=== PATIENT | male | born 1975 ===

== ENCOUNTER 2018-05-25 12:12 | Emergency (ER) | payer MEDICAID ==
[2018-05-25 12:23] VITALS: BP 168/103; PULSE 62; RESP 20; TEMP 97.9; O2SAT 98
--- NOTE | 2018-05-25 13:13 | ED PDOC ---
HPI: General Adult Time Seen by Provider: 05/25/18 12:26 Chief Complaint (Nursing): Dizziness/Lightheaded History Per: Patient History/Exam Limitations: no limitations Onset/Duration Of Symptoms: Days Current Symptoms Are (Timing): Better Additional Complaint(s): 43 year old male with a past medical history of high blood pressure and diabetes presents to the ED for an evaluation of dizziness and weakness. Patient states the dizziness started yesterday around 3-4pm with associated symptoms of double vision and numbness in his arms so he went home. At home, he took a shower and went to sleep at 9:30pm. He woke up and went out to eat tacos and then went to bed at 12am. When patient woke up at 10:30am today, he started to hear voices that were bothering him. Also reports of light headedness and states he has no strength in his arms and legs. Patient states he feels much better today. Denies abdominal pain, chest pain, fever or cough. PMD: Marko Evans Past Medical History Reviewed: Historical Data, Nursing Documentation, Vital Signs Vital Signs: Last Vital Signs Temp 97.9 F 05/25/18 12:18 Pulse 62 05/25/18 12:18 Resp 20 05/25/18 12:18 BP 168/103 H 05/25/18 12:18 Pulse Ox 98 05/25/18 13:27 - Medical History PMH: Anxiety, Diabetes, HTN - Surgical History Surgical History: No Surg Hx - Family History Family History: States: Unknown Family Hx - Social History Current smoker - smoking cessation education provided: No Alcohol: None Drugs: Denies - Allergies Allergies/Adverse Reactions: Allergies Allergy/AdvReac Type Severity Reaction Status Date / Time No Known Allergies Allergy Verified 05/25/18 12:19 Review of Systems ROS Statement: Except As Marked, All Systems Reviewed And Found Negative Constitutional: Positive for: Weakness. Negative for: Fever Eyes: Positive for: Vision Change Cardiovascular: Negative for: Chest Pain Respiratory: Negative for: Cough Gastrointestinal: Negative for: Abdominal Pain Neurological: Positive for: Dizziness Psych: Negative for: Suicidal ideation (homicidal ideation) Physical Exam - Reviewed Nursing Documentation Reviewed: Yes Vital Signs Reviewed: Yes - Physical Exam Appears: Positive for: Well, Non-toxic, No Acute Distress Head Exam: Positive for: ATRAUMATIC, NORMAL INSPECTION, NORMOCEPHALIC Skin: Positive for: Normal Color, Warm, Dry Eye Exam: Positive for: EOMI, Normal appearance, PERRL ENT: Positive for: Normal ENT Inspection Neck: Positive for: Normal, Painless ROM, Supple. Negative for: Decreased ROM Cardiovascular/Chest: Positive for: Regular Rate, Rhythm. Negative for: Murmur Respiratory: Positive for: Normal Breath Sounds. Negative for: Decreased Breath Sounds, Wheezing, Respiratory Distress Gastrointestinal/Abdominal: Positive for: Normal Exam, Bowel Sounds, Soft. Negative for: Tenderness, Guarding, Rebound Back: Positive for: Normal Inspection Extremity: Positive for: Normal ROM. Negative for: Tenderness, Pedal Edema, Deformity Neurologic/Psych: Positive for: Alert, Oriented (x3). Negative for: Motor/ Sensory Deficits - Laboratory Results Result Diagrams: 05/25/18 13:24 05/25/18 13:24 - ECG O2 Sat by Pulse Oximetry: 98 (RA) Pulse Ox Interpretation: Normal - Progress Re-evaluation Time: 14:00 Condition: Improved Medical Decision Making Medical Decision Making: Time: 1301 Initial Plan: --EKG --CMP --ED Urine Dipstick --CBC w/ Differential --Heplock Insertion --Reevaluation Scribe Attestation: Documented by Cynthia Almonte, acting as a scribe for Deepa Lozada MD Provider Scribe Attestation: All medical record entries made by the Scribe were at my direction and personally dictated by me. I have reviewed the chart and agree that the record accurately reflects my personal performance of the history, physical exam, medical decision making, and the department course for this patient. I have also personally directed, reviewed, and agree with the discharge instructions and disposition. Disposition - Clinical Impression Clinical Impression: Dizziness, Hypertension - Patient ED Disposition Is Patient to be Admitted: No Doctor Will See Patient In The: Office Counseled Patient/Family Regarding: Diagnosis, Need For Followup, Rx Given - Disposition Referrals: Jeannine Martinez [Outside] Wilfrido Angel MD [Medical Doctor] - Disposition: Routine/Home Disposition Time: 14:00 Condition: IMPROVED Instructions: Dizziness, Nonvertigo, (DC), High Blood Pressure in Adults Forms: [facility] (Luxem[place]ish) Print Language: DIVEHI - POA Present On Arrival: None
[2018-05-25 13:33] LABS: BASO # 0.1 K/uL (0.0-0.2); BASO % 1.4 % (0.0-2.0); EOS % 0.5 % (0.0-4.0); HEMOGLOBIN 13.9 g/dL (12.0-18.0); LYMPH # 2.5 K/uL (1.0-4.3); LYMPH % 24.7 % (20.0-40.0); MEAN CELL VOLUME 86.1 fl (80.0-94.0); MEAN CORPUSCULAR HEMOGLOBIN 29.2 pg (27.0-31.0); MEAN CORPUSCULAR HGB CONC 33.9 g/dL (33.0-37.0); MEAN PLATELET VOLUME 10.3 fl (7.2-11.7); MONO # 0.6 K/uL (0.0-0.8); MONO % 6.1 % (0.0-10.0); NEUT # 6.9 K/uL (1.8-7.0); NEUT % 67.3 % (50.0-75.0); NRBC % 0.1 % (0.0-0.0); RBC 4.77 Mil/uL (4.40-5.90); RED CELL DISTRIBUTION WIDTH 14.6 % (11.5-14.5); WHITE BLOOD COUNT 10.3 K/uL (4.8-10.8)
[2018-05-25 13:52] LABS: CALCIUM 8.6 mg/dL (8.4-10.2); GFR AFRICAN-AMERICAN > 60; GFR NON-AFRICAN AMERICAN > 60
[2018-05-25 14:00] LABS: ALBUMIN 4.1 g/dL (3.5-5.0); ALT/SGPT 28 U/L (21-72); AST/SGOT 37 U/L (17-59); BLOOD UREA NITROGEN 11 mg/dl (9-20)
--- NOTE | 2018-05-26 07:51 | CARD ---
APPROVED REPORT Date of service: 05/25/2018 <Conclusion> Sinus bradycardia with sinus arrhythmia with occasional premature ventricular complexes Left axis deviation Left ventricular hypertrophy with QRS widening and repolarization abnormality vs lateral wall ischemia Abnormal ECG
== END 2018-05-25 15:04 | disposition home or self-care (01) ==
LOC: H.ER 12:12
DX: R42 Dizziness and giddiness (principal); I10 Essential (primary) hypertension; E11.9 Type 2 diabetes mellitus without complications; F41.9 Anxiety disorder, unspecified; R20.2 Paresthesia of skin